=== PATIENT | female | born 1960 | race Two or more races ===

== ENCOUNTER 2020-07-22 10:59 | Outpatient (CLI) | payer OTHER | END 2020-07-22 23:59 | disposition home or self-care (01) | LOC: MSC 10:59 | PROVIDERS: ATTEND Internal Medicine | DX: Z09 Encounter for follow-up examination after completed treatment for conditions other than malignant neoplasm (principal); Z86.19 Personal history of other infectious and parasitic diseases; R79.89 Other specified abnormal findings of blood chemistry; N60.09 Solitary cyst of unspecified breast ==